=== PATIENT | female | born 1970 | race African-American/Black ===

== ENCOUNTER 2020-04-29 07:36 | Outpatient (CLI) | payer OTHER ==
[2020-04-29 08:10] LABS: #Eosinphils 0.2 10x3/uL (0.0-0.5); #Monocytes 0.5 10x3/uL (0.0-1.1); %Basophils 0.2 % (0.0-2.0); %Monocytes 9.5 % (0.0-10.0); %Neutrophils 39.9 % (40.0-75.0); Hemoglobin 13.8 g/dL (12.0-16.0); Mean Corpuscular HGB CONC 34.2 G/DL (32.0-36.0); Mean Corpuscular Hemoglobin 30.8 PG (27.0-33.0); Mean Corpuscular Volume 90.2 fl (80.0-100.0); Mean Platelet Volume 10.6 fl (7.4-10.4); Platelet Count 200 10x3/uL (130-400); RBC Distribution Width 13.4 % (11.5-14.5); Red Blood Cell (RBC) Count 4.48 10x6/uL (3.90-5.20); White Blood Cell (WBC) Count 5.1 10x3/uL (4.5-11.0)
[2020-04-29 08:17] LABS: Anion Gap 14 mmol/L (10-20); BUN (Urea Nitrogen) 12 mg/dL (9.8-20.1); Calc. Creatinine Clearance 0 mL/min (70-130); Calcium 9.5 mg/dL (7.8-10.44); Carbon Dioxide 27 mmol/L (22-29); Chloride 106 mmol/L (98-107); Glucose 93 mg/dL (70-105); Potassium 4.1 mmol/L (3.5-5.1); Sodium 143 mmol/L (136-145)
[2020-04-29 16:46] LABS: SARS-CoV-2 MS2 Positive; SARS-CoV-2 N Gene Negative; SARS-CoV-2 S Gene Negative; SARS-CoV-2 by NAA Not Detected (NotDetected); SARS-CoV-2 orf1ab Negative
== END 2020-04-29 07:37 | disposition home or self-care (01) ==
LOC: LABBT 07:36
PROVIDERS: ATTEND Specialist
DX: Z01.818 Encounter for other preprocedural examination (principal); Z20.822 Contact with and (suspected) exposure to COVID-19; I10 Essential (primary) hypertension; E66.01 Morbid (severe) obesity due to excess calories; F51.01 Primary insomnia; R41.3 Other amnesia; M54.41 Lumbago with sciatica, right side; K43.2 Incisional hernia without obstruction or gangrene; E78.5 Hyperlipidemia, unspecified
CPT/HCPCS: 80048; 85025; 87635; 93005; 93010; U0003

== ENCOUNTER 2020-05-02 07:30 | Day surgery (SDC) | payer OTHER ==
[2020-04-30 11:13] VITALS: BMI 41.9
[2020-05-02] MEDS ORDERED: Ketorolac Tromethamine 30 MG/ML VIAL ONE ×2 (07:57→09:05)
[2020-05-02] MEDS ORDERED: Acetaminophen 500 MG TAB ONE (07:57)
[2020-05-02] MEDS ORDERED: Gabapentin 300 MG CAP ONE (07:57)
[2020-05-02] MEDS ORDERED: Bupivacaine 0.25% HCL 30 ML VIAL ONE (08:24)
[2020-05-02] MEDS ORDERED: Lidocaine 2% w/Epinephrine 1:200K 20 ML VIAL ONE (08:24)
[2020-05-02] MEDS ORDERED: Ondansetron PF 4 MG/2 ML Vial ONE (09:05)
[2020-05-02] MEDS ORDERED: Succinylcholine 200 MG/10 ml SYRINGE FS ONE (09:05)
[2020-05-02] MEDS ORDERED: Glycopyrrolate 0.2 MG/ML 5 ML SYRINGE ONE (09:05)
[2020-05-02] MEDS ORDERED: Dexamethasone 20 MG/5 ML VIAL ONE (09:05)
[2020-05-02] MEDS ORDERED: PROPOFOL 200 MG/20 ML VIAL ONE (09:05)
[2020-05-02] MEDS ORDERED: Rocuronium Bromide 10 MG/ML (10ML VIAL) ONE (09:05)
[2020-05-02] MEDS ORDERED: Lidocaine 1% PF 5 ML VIAL ONE (09:05)
[2020-05-02] MEDS ORDERED: Fentanyl 100 MCG/2 ML VIAL ONE ×3 (09:20→11:57)
--- NOTE | 2020-05-02 12:34 | OP ---
DATE OF PROCEDURE: 05/02/2020 PREOPERATIVE DIAGNOSES: 1. Incisional hernia, supraumbilical, midline. 2. Morbid obesity, 284 pounds and BMI 41. POSTOPERATIVE DIAGNOSES: 1. Incisional hernia, supraumbilical, midline, incarcerated with omentum and falciform ligament. 2. Morbid obesity, 284 pounds and BMI 41. PROCEDURES PERFORMED: Laparoscopic/robotic reduction of incarcerated incisional hernia, supraumbilical, with closure of fascial defect with #1 V-Loc suture, incorporating the hernia sac into the closure, closing a 4.5-cm fascial defect, reinforcing it with a 9 cm in diameter Ventralight mesh, secured with 2-0 V-Loc suture, and reduction of omentum contents. ANESTHESIA: General, local with 0.5% Marcaine 30 mL, mixed with 1% Xylocaine with epinephrine 20 mL, total volume used. DESCRIPTION OF PROCEDURE: The patient was taken to the operating room where under general anesthesia, abdomen was prepared with ChloraPrep and draped in routine fashion. Basurto catheter placed at the beginning of the procedure and removed at the end. Incarcerated omentum and falciform ligament taken down by mobilizing the falciform ligament, reducing the omental contents, excising the hernia sac were able. Hemostasis gained with cautery. Once the fatty tissue was cleaned from around this and falciform ligament cleared. The fascial defect closed with continuous suture of #1 V-Loc suture, reducing the pneumoperitoneum to 9 mmHg, carrying a suture continuous to and fro for a 2-layer approximation and then Ventralight mesh secured with continuous suture of 2-0 Stratafix sutures and needles retrieved. Good hemostasis noted. Irrigant and pneumoperitoneum evacuated. All instruments were removed, and all skin incisions were approximated with interrupted subdermal 4-0 Monocryl. Left subxiphoid incision made, left mid lateral and left lower quadrant lateral incisions made for port placement, initiating pneumoperitoneum Veress needle, replaced with 11 mm balloon port and placing the remainder of the ports under laparoscopic visualization, 8 mm ports placed and robot docked, and the hernia repair performed as described. Job ID: [id number]
[2020-05-02] MEDS ORDERED: HYDROcodone/Acetaminophen 5/325 mg Tablet ONE (13:27)
== END 2020-05-02 13:50 | disposition home or self-care (01) ==
LOC: SDC 07:30
PROVIDERS: ATTEND Specialist
PROC: 0WUF4JZ Supplement Abdominal Wall with Synthetic Substitute, Percutaneous Endoscopic Approach (ICD-10-PCS; principal; 2020-05-02)
DX: K43.0 Incisional hernia with obstruction, without gangrene (principal); E66.01 Morbid (severe) obesity due to excess calories; I10 Essential (primary) hypertension; E78.5 Hyperlipidemia, unspecified; J45.909 Unspecified asthma, uncomplicated; G47.30 Sleep apnea, unspecified; M54.31 Sciatica, right side; G47.00 Insomnia, unspecified; Z68.41 Body mass index [BMI] 40.0-44.9, adult; Z79.899 Other long term (current) drug therapy; Z88.6 Allergy status to analgesic agent; Z88.8 Allergy status to other drugs, medicaments and biological substances
CPT/HCPCS: C1781; J0690; J1885; J3010; S0020

== ENCOUNTER 2023-03-05 11:50 | Emergency (ER) | payer OTHER ==
[2023-03-05 13:42] LABS: #Monocytes 0.6 thou/uL (0.11-0.59); #Neutrophils 2.3 thou/uL (1.40-6.50); %Basophils 0.2 % (0.0-1.0); %Eosinophils 0.4 % (0.0-10.0); %Lymphocytes 42.9 % (21.0-51.0); %Monocytes 11.8 % (0.0-10.0); %Neutrophils 44.5 % (42.0-75.0); Hematocrit 44.3 % (36.0-47.0); Mean Corpuscular HGB CONC 33.9 g/dL (32.0-36.0); Mean Corpuscular Hemoglobin 30.6 pg (27.0-31.0); Mean Corpuscular Volume 90.4 fl (78.0-98.0); Platelet Count 122 10x3/uL (130-400); RBC Distribution Width 12.9 % (11.5-14.5); White Blood Cell (WBC) Count 5.2 10x3/uL (4.8-10.8)
[2023-03-05] MEDS ORDERED: Albuterol 2.5 MG/0.5 ML NEB ONE (13:42)
[2023-03-05] MEDS ORDERED: Ipratropium/Albuterol 3 ML NEB ONE (13:42)
[2023-03-05] MEDS ORDERED: Dexamethasone 10 MG/ML VIAL ONE (13:42)
[2023-03-05] MEDS ORDERED: Sodium Chloride 0.9% 100 ML ONE (13:45)
[2023-03-05] MEDS ORDERED: cefTRIAXone (ROCEPHIN) 1 GM VIAL ONE (13:45)
[2023-03-05 14:09] LABS: ALT (SGPT) 67 U/L (8-55); AST (SGOT) 45 U/L (5-34); Albumin 4.6 g/dL (3.5-5.0); Alkaline Phosphatase 61 U/L (40-110); Anion Gap 15 mmol/L (10-20); BUN (Urea Nitrogen) 18 mg/dL (9.8-20.1); Bilirubin, Total 0.8 mg/dL (0.2-1.2); Calc. Creatinine Clearance 0 mL/min (70-130); Calcium 8.7 mg/dL (7.8-10.44); Carbon Dioxide 22 mmol/L (22-29); Chloride 103 mmol/L (98-107); Estimated GFR 43; Glucose 109 mg/dL (70-105); Lipase 70 U/L (8-78); Potassium 3.6 mmol/L (3.5-5.1); Protein, Total 7.6 g/dL (6.0-8.3); Sodium 136 mmol/L (136-145)
[2023-03-05 14:33] LABS: SARS-CoV-2 NAA Rapid Test Not Detected (NotDetected)
[2023-03-05 15:32] LABS: Bilirubin Negative (Negative); Blood, Urine Negative (Negative); CAUTI Indications for Culture Dysuria,urgency,freq; Clarity Clear (Clear); Glucose, Urine (Dipstick) Normal (Negative); Ketone, Urine Negative (Negative); Leukocyte Negative Leu/uL (Negative); Nitrite Negative (Negative); Protein, Urine (Dipstick) 30 mg/dL (Neg-Trace); RBC/HPF 0-3 HPF (0-3); Specific Gravity, Urine 1.013 (1.002-1.036); Squamous Epithelial 0-3 HPF (0-3); Urobilinogen Normal mg/dL (Less than 2); WBC/HPF 0-3 HPF (0-3); pH, Urine 5.5 (5.0-9.0)
[2023-03-05 15:33] LABS: Bacteria/HPF 1+ HPF (None Seen)
[2023-03-05 15:34] LABS: Urine Culture Reflex No No
== END 2023-03-05 15:14 | disposition home or self-care (01) ==
LOC: ERS 11:50
DX: J10.1 Influenza due to other identified influenza virus with other respiratory manifestations (principal); I10 Essential (primary) hypertension; E78.5 Hyperlipidemia, unspecified; F17.200 Nicotine dependence, unspecified, uncomplicated; Z79.899 Other long term (current) drug therapy; Z20.822 Contact with and (suspected) exposure to COVID-19
CPT/HCPCS: 36415; 71045; 80053; 81001; 83690; 85025; 87040; 93005; 96365; 96375; J0696; J1100; J3490; J7611; J7620